=== PATIENT | male | born 1975 | race Caucasian/White ===

== ENCOUNTER 2025-01-21 21:54 | Emergency (ER) | payer BC, SELFPAY ==
[2025-01-21 21:58] VITALS: BP 137/80
--- NOTE | 2025-01-21 23:28 | ED.GENMED ---
History of Present Illness
General
Chief Complaint: Skin Surface Trauma
Source: patient
Exam Limitations: none
Time Seen by Provider: 01/21/25 23:28
History of Present Illness
History of Present Illness:
49yo left hand dominant male presenting for evaluation of a right little finger laceration that was sustained about 2 hours prior to arrival. Patient was cutting apples when he accidentally cut the tip of his right little finger. He was having
difficulty stopping the bleeding at home so came to the ED. Tetanus shot is reported to be up to date.
Phy Exam
General Physical Exam
General Presentation: well appearing and no apparent distress
General Skin: warm and dry
General Habitus: normal
General Mental: alert
ENT Exam
ENT Exam: normocephalic
Neurological Exam
Neurological Exam: alert
Sumeet Coma Scale
Eye Opening: Spontaneous
Verbal Response: Oriented
Motor Response: Obeys Commands
GCS Total Score: 15
Skin Exam
Skin Exam: warm/dry and other (Skin avulsion to the distal fingertip of the R little finger with venous oozing. Does not involve nail. No bony tenderness.)
Psychiatric Exam
Psychiatric Exam: normal mood/affect
Course
Vital Signs
Initial and Last Documented VS:
Initial Vital Signs
Temp Pulse Resp Pulse Ox
97.6 F 69 18 100
01/21/25 21:57 01/21/25 21:57 01/21/25 21:57 01/21/25 21:57
Last Documented Vital Signs
Temp Pulse Resp BP Pulse Ox
97.6 F 69 18 137/80 100
01/21/25 21:57 01/21/25 21:57 01/21/25 21:57 01/21/25 21:58 01/21/25 23:30
MDM/Problems Addressed
Differential Diagnosis Includes:
49yoM here with a laceration to the R little finger. Avulsion of distal fingertip noted on exam with venous oozing. No areas amenable to suture repair. Wound was soaked in lidocaine with epinephrine and Surgicel placed with hemostasis. Home wound
care discussed. Advised return to the ED with any uncontrolled bleeding or signs of infection.
*Pulse Oximetry
SaO2: 100
Oxygen Mode of Delivery: Room air
Patient hypoxic: no (100%)
*Critical Care Note
Total Time (30-74mins, 75-104mins- exclusive of procedures): Not Applicable
ED Attending Note
-
Portions of this chart may have been created with voice recognition software.� Occasional wrong word or��sound alike� substitutions may have occurred due to the inherent limitations of voice recognition software.
Discharge Plan
Departure
Patient Disposition: Home (Routine Discharge)
Date of Disposition: 01/21/25
Time of Disposition: 23:43
Patient with high blood pressure during this ER visit?: No
Discharge Problem:
Fingertip avulsion
Instructions: Taking care of cuts, scrapes, and puncture wounds
Activity Restrictions/Additional Instructions:
Leave Surgicel dressing in place for at least 3 days.
Return to the ER with any uncontrolled bleeding or signs of infection.
Interventions
Interventions:
*Risk Screen - Suicide Last Done: 01/21/25 21:57
*General Assessment Last Done: 01/21/25 21:57
*Neglect/Abuse Screening Last Done: 01/21/25 21:57
Discharge Date and Time
Print Language: KOSOVAN
== END 2025-01-22 00:40 | disposition home or self-care (01) ==
LOC: EMR 21:54
PROVIDERS: EMERGENCY PHYSICIAN Emergency Medicine
DX: S61.216A Laceration without foreign body of right little finger without damage to nail, initial encounter (principal); W45.8XXA Other foreign body or object entering through skin, initial encounter
CPT/HCPCS: 99282